=== PATIENT | female | born 1985 | race Caucasian/White ===

== ENCOUNTER 2017-07-03 13:31 | Emergency (ER) | payer OTHER ==
[~2017-07-03] VITALS: Ht 157.5 cm; Wt 72.6 kg
[~2017-07-03 13:31] MED LIST: ADDERALL 30 MG30 MG PO; BACTRIM DS TAB1 EACH PO; CIPRO500 MG PO; DOXYCYCLINE 10100 MG PO; FLAGYL500 MG PO; HYDROCODONE-AP1 EAC6 PO; IBUPROFEN 800800 MG PO; PHENERGAN 25 MG25 M1 PO; ZOLOFT100 MG PO
[2017-07-03] MEDS ORDERED: KEFLEX500 M1 PO (14:14)
[2017-07-03 14:54] VITALS: BP 121/77
== END 2017-07-03 14:56 | disposition home or self-care (01) ==
LOC: M.ERS 13:31
DX: S61.411A Laceration without foreign body of right hand, initial encounter (principal); X58.XXXA Exposure to other specified factors, initial encounter; Y93.89 Activity, other specified; Y92.89 Other specified places as the place of occurrence of the external cause; Y99.8 Other external cause status

== ENCOUNTER 2017-12-05 01:46 | Emergency (ER) | payer OTHER ==
[~2017-12-05] VITALS: Ht 165.1 cm; Wt 77.1 kg
[~2017-12-05 01:46] MED LIST changes: +KEFLEX500 M1 PO
[2017-12-05] MEDS ORDERED: TOPAMAX50 MG PO (02:01)
[2017-12-05 02:08] VITALS: BP 152/115
[2017-12-06] MEDS ORDERED: TOPAMAX 25 MG T25 M1 PO (03:13)
[2017-12-06] MEDS ORDERED: AMBIEN 5 MG TABL5 M1 PO (06:49)
== END 2017-12-05 02:11 | disposition home or self-care (01) ==
LOC: M.ERS 01:46
DX: Z71.1 Person with feared health complaint in whom no diagnosis is made (principal); F32.9 Major depressive disorder, single episode, unspecified; F90.9 Attention-deficit hyperactivity disorder, unspecified type; G43.909 Migraine, unspecified, not intractable, without status migrainosus; Z98.890 Other specified postprocedural states

== ENCOUNTER 2017-12-06 02:56 | Emergency (ER) | payer OTHER ==
[~2017-12-06] VITALS: Ht 157.5 cm; Wt 76.0 kg
[~2017-12-06 02:56] MED LIST changes: +TOPAMAX50 MG PO
[2017-12-06] MEDS ORDERED: TOPAMAX 25 MG T25 M1 PO (03:13)
[2017-12-06 03:59] LABS: URINE BILIRUBIN NEGATIVE (Negative); URINE BLOOD 1+ (Negative); URINE CLARITY CLEAR; URINE COLOR YELLOW; URINE GLUCOSE-RANDOM NEGATIVE (Negative); URINE KETONES NEGATIVE (Negative); URINE LEUKOCYTES NEGATIVE (Negative); URINE NITRITE NEGATIVE (Negative); URINE PROTEIN NEGATIVE (Negative); URINE SPECIFIC GRAVITY 1.025 (1.005-1.030); URINE UROBILINOGEN 0.2 E.U./dl (0.2-1.0)
[2017-12-06 04:08] LABS: AMP/METHAMP POSITIVE (Negative); BARBITURATES Negative (Negative); BENZODIAZEPINES Negative (Negative); COCAINE Negative (Negative); METHADONE Negative (Negative); OPIATES Negative (Negative); PCP Negative (Negative); THC POSITIVE (Negative)
[2017-12-06 04:14] LABS: HEMATOCRIT 39.9 % (37.0-47.0); HEMOGLOBIN 13.4 gm/dL (12.0-15.0); MCH 29.4 pg (26.0-34.0); MCHC 33.6 g/dL (28.0-37.0); MCV 87.3 fL (80.0-100.0); MPV 8.8 fl. (7.2-11.1); RBC 4.57 mil/uL (4.20-5.00); RDW-CV 14.1 % (10.5-14.5); WBC 8.8 thou/uL (4.0-11.0)
[2017-12-06 04:18] LABS: BACTERIA None Seen /HPF (None Seen); SQUAMOUS >10 Many /LPF (0-3); TRANSITIONAL EPITHEL CELL 0-3 Few /LPF (None Seen); URINE WBC 6-15 Few /HPF (0-5); WBC CLUMPS Few (None Seen)
[2017-12-06 04:19] LABS: COARSE GRANULAR CASTS 0-3 Few /LPF (None Seen); CRYSTALS None Seen /LPF (None Seen); FINE GRANULAR CASTS 0-3 Few /LPF (None Seen); HYALINE CASTS 0-3 Few /LPF (None Seen); MUCUS 4-6 Moderate strn/LPF (None Seen)
[2017-12-06 04:22] LABS: CALCIUM 8.7 mg/dL (8.5-10.1); CREATININE 1.1 mg/dL (0.6-1.3); POTASSIUM 3.7 mmol/L (3.5-5.1)
[2017-12-06 04:34] LABS: ALBUMIN 4.2 g/dL (3.4-5.0); TOTAL BILIRUBIN 0.4 mg/dL (<0.1-1.0); TOTAL PROTEIN 7.7 g/dL (6.4-8.2)
[2017-12-06 04:36] LABS: SALICYLATE 3.1 mg/dL (2.8-20.0)
[2017-12-06 04:37] LABS: ACETAMINOPHEN < 2 ug/mL (10-30); ALCOHOL < 10 mg/dL (<10)
[2017-12-06] MEDS ORDERED: AMBIEN 5 MG TABL5 M1 PO (06:49)
[2017-12-06 07:08] VITALS: BP 126/94
== END 2017-12-06 07:08 | disposition home or self-care (01) ==
LOC: M.ERS 02:56
PROVIDERS: Personal Emergency Response Attendant
DX: Z04.6 Encounter for general psychiatric examination, requested by authority (principal); F32.9 Major depressive disorder, single episode, unspecified; F90.9 Attention-deficit hyperactivity disorder, unspecified type; G43.909 Migraine, unspecified, not intractable, without status migrainosus; F12.10 Cannabis abuse, uncomplicated